=== PATIENT | female | born 1995 | race Two or more races ===

== ENCOUNTER 2022-12-09 23:00 | Emergency (ER) | payer BC ==
[~2022-12-09] VITALS: Ht 162.6 cm; Wt 65.8 kg
[2022-12-10] MEDS ORDERED: PEPCID40 MG PO (03:09)
[2022-12-10] MEDS ORDERED: ONDANSETRON ODT4 MG PO (03:09)
== END 2022-12-10 03:13 ==
LOC: ER 23:00
DX: K29.70 Gastritis, unspecified, without bleeding (principal); R11.10 Vomiting, unspecified